=== PATIENT | female | born 1970 | race Caucasian/White ===

== ENCOUNTER → 2017-10-19 | Outpatient (CLI) | payer BC ==
--- NOTE | 2017-10-19 15:12 | US ---
EXAMINATION TYPE: US kidneys/renal and bladder DATE OF EXAM: 10/19/2017 COMPARISON: NONE CLINICAL HISTORY: N13.2 History of R Hydronephrosis. History of stones EXAM MEASUREMENTS: Right Kidney: 11.5 x 3.9 x 5.3 cm Left Kidney: 12.3 x 5.3 x 4.5 cm Right Kidney: No hydronephrosis. Some echogenic foci visualized, possible stones, largest measuring 0 .4 cm . Left Kidney: No hydronephrosis or masses seen Bladder: wnl Bilateral Jets seen: Yes There is no evidence for hydronephrosis at this point in time. No masses are identified. The urinar y bladder is anechoic. Bilateral ureteral jets are seen. IMPRESSION: Nonobstructing nephrolithiasis right kidney.
== END | disposition home or self-care (01) ==
LOC: RADUSWWP 14:44 → EDBD 15:00
PROVIDERS: ATTEND Urology
DX: N20.0 Calculus of kidney (principal)
CPT/HCPCS: 76770

== ENCOUNTER 2022-02-15 10:43 | Inpatient (IN) | payer BC ==
[2022-02-15] MEDS ORDERED: SODIUM CHLORIDE 0.9% 1,000 ML IV STA (11:08)
[2022-02-15] MEDS ORDERED: ASPIRIN 81 MG PO STA (11:08)
[2022-02-15] MEDS: NITROGLYCERIN SL TABS 0.4 MG TAB SUBLINGUAL STA ×2 (11:27→11:58)
[2022-02-15 11:40] LABS: ALT 18 U/L (4-34); AST 25 U/L (14-36); African American GFR (CKD) >90 (>60 ml/min/1.73 sqM); Albumin 4.5 g/dL (3.5-5.0); Alkaline Phosphatase 96 U/L (38-126); Anion Gap 9 mmol/L; Blood Urea Nitrogen 11 mg/dL (7-17); Calcium 9.6 mg/dL (8.4-10.2); Carbon Dioxide 24 mmol/L (22-30); Chloride 108 mmol/L (98-107); Glucose 104 mg/dL (74-99); Non-African American GFR(CKD) >90 (>60 ml/min/1.73 sqM); Potassium 4.2 mmol/L (3.5-5.1); Sodium 141 mmol/L (137-145); Total Bilirubin 0.6 mg/dL (0.2-1.3); Total Protein 7.3 g/dL (6.3-8.2)
[2022-02-15 11:46] LABS: Basophils % (A) 0 %; Eosinophils # (A) 0.3 k/uL (0-0.7); Eosinophils % (A) 2 %; HCT 44.4 % (34.0-46.0); Lymphocytes # (A) 2.6 k/uL (1.0-4.8); Lymphocytes % (A) 22 %; MCH 30.1 pg (25.0-35.0); MCHC 33.8 g/dL (31.0-37.0); MCV 89.1 fL (80.0-100.0); Mean Platelet Volume 7.7; Monocytes # (A) 0.5 k/uL (0-1.0); Monocytes % (A) 4 %; Neutrophils # (A) 8.5 k/uL (1.3-7.7); Neutrophils % (A) 71 %; Platelet Count 477 k/uL (150-450); RBC 4.98 m/uL (3.80-5.40); RDW 13.3 % (11.5-15.5); WBC 11.9 k/uL (3.8-10.6)
[2022-02-15 11:49] LABS: INR 0.9 (<1.2); Partial Thromboplastin Time 23.6 sec (22.0-30.0); Prothrombin Time 10.1 sec (9.0-12.0)
--- NOTE | 2022-02-15 11:54 | XR ---
EXAMINATION TYPE: XR chest 2V DATE OF EXAM: 02/15/2022 COMPARISON: NONE HISTORY: Chest pain. TECHNIQUE: Frontal and lateral views of the chest are obtained. FINDINGS: Overlying EKG leads are present. There is no focal air space opacity, pleural effusion, or pneumothorax seen. The cardiac silhouette size is within normal limits. The osseous structures are intact. IMPRESSION: No acute process.
--- NOTE | 2022-02-15 12:07 | ED ---
Chest Pain HPI - General Chief Complaint: Chest Pain Stated Complaint: Chest pain Time Seen by Provider: 02/15/22 11:00 Source: patient Mode of arrival: ambulatory Limitations: no limitations - History of Present Illness Initial Comments: Patient is a 51-year-old female presenting with chief complaint of chest pain. Patient admits to intermittent chest pain for the past several weeks, however over the last 3-4 days it has become more frequent and intense. She states that "it feels like a small child is sitting on my chest". The pain is not reprodu cible. She does not notice it more with exertion. She states that occasionally she feels pain in the left arm. She also feel pain in her throat and across her back. She admits to intense episodes of diaphoresis. She denies shortness of breath, palpitations, weakness, nausea, vomiting, abdominal pain, headache, vision changes, diarrhea. - Related Data Home Medications Medication Instructions Recorded Confirmed No Known Home Medications 02/15/22 02/15/22 Allergies Allergy/AdvReac Type Severity Reaction Status Date / Time No Known Allergies Allergy Verified 02/15/22 13:05 Review of Systems ROS Statement: Those systems with pertinent positive or pertinent negative responses have been documented in the HPI. ROS Other: All systems not noted in ROS Statement are negative. EKG Findings - EKG Comments: EKG Findings:: Sinus rhythm with rate of 75. SC interval 129. QRS duration 81. There is some T-wave inversion in lead 3. EKG was promptly shown to and interpreted by my attending Dr. Saenz as well Past Medical History Past Medical History: Hyperlipidemia, Hypertension History of Any Multi-Drug Resistant Organisms: None Reported Past Surgical History: Tonsillectomy Additional Past Surgical History / Comment(s): lithotripsy Past Psychological History: No Psychological Hx Reported Smoking Status: Current every day smoker Past Alcohol Use History: Rare Past Drug Use History: Marijuana General Exam Limitations: no limitations General appearance: alert, in no apparent distress Head exam: Present: atraumatic, normocephalic, normal inspection Eye exam: Present: normal appearance, EOMI. Absent: scleral icterus Neck exam: Present: normal inspection Respiratory exam: Present: normal lung sounds bilaterally. Absent: respiratory distress, wheezes, rales, rhonchi, stridor Cardiovascular Exam: Present: regular rate, normal rhythm, normal heart sounds. Absent: systolic murmur, diastolic murmur, rubs, gallop, clicks GI/Abdominal exam: Present: soft. Absent: distended, tenderness, guarding, rebound, rigid Neurological exam: Present: alert, oriented X3, CN II-XII intact Psychiatric exam: Present: normal affect, normal mood Skin exam: Present: warm, dry, intact, normal color. Absent: rash Course Vital Signs 02/15/22 02/15/22 10:46 12:55 Temperature 98 F Pulse Rate 80 62 Respiratory 18 18 Rate Blood Pressure 173/87 157/81 O2 Sat by Pulse 100 Oximetry Chest Pain [facility] Patient is a 51-year-old female presenting with chief complaint of chest pain. Patient states she has had recurrent bouts of chest pain for several weeks, this recent episode has been going on for the last 3 days. It is not exertional, does not reproducible, she describes it as "I feel like there is a small child sitting on my chest". She has intermittent left arm and neck pain. On examination heart and lungs are clear to auscultation. Pain is not reproducible. Initial EKG obtained shows T-wave inversion in lead 3. Troponin is elevated at 0.792. Patient was admitted with ACS protocol, this included low-dose heparin, sublingual nitro, nitro paste, 80 mg Lipitor, metoprolol, telemetry monitoring. I spoke with the hospitalist team and Dr. Ivey. I pl aced a nursing communication order that any change in her pain should be communicated to Dr. Ivey, as instructed by him. I explained the findings to the patient. She was agreeable to admission. I discussed this case with my attending Dr. Saenz. Critical Care Time Critical Care Time: Yes (30) Disposition Clinical Impression: Acute non-ST elevation myocardial infarction (NSTEMI) Disposition: ADMITTED IP TO THIS [facility] Condition: Stable Time of Disposition: 13:05 Decision to Admit Reason: Admit from EC Decision Date: 02/15/22 Decision Time: 13:05
[2022-02-15] MEDS ORDERED: HEPARIN SODIUM 1,000 UN/ML (10ML VL) IV ONE (12:19)
[2022-02-15] MEDS ORDERED: HEPARIN SODIUM 1,000 UN/ML (10ML VL) IV PRN (12:19)
[2022-02-15] MEDS ORDERED: NITROGLYCERIN OINT 1 INCH/GM PACKET TOPICAL STA (12:27)
[2022-02-15] MEDS ORDERED: HEPARIN SOD,PORK IN 0.45% NACL 25,000 UNIT in 0.45% NACL 1 250ML.BAG IV SCH (12:30)
[2022-02-15] MEDS ORDERED: NITROGLYCERIN SL TABS 0.4 MG TAB SUBLINGUAL PRN (12:37)
[2022-02-15] MEDS ORDERED: METOPROLOL TARTRATE 50 MG TAB PO STA (12:59)
[2022-02-15] MEDS: ATORVASTATIN 80 MG TAB PO SCH (13:03)
--- NOTE | 2022-02-15 14:22 | P.HPIM ---
History of Present Illness H&P Date: 02/15/22 Chief Complaint: Chest pain Patient is a 50-year-old female with a past medical history of hypertension and hyperlipidemia who comes to the ED for chest pain evaluation. Patient states that she has been having ongoing persistent pressure-like chest pain for the pa st 3 days. She states that it is not really associated with exertion. She stated that she was given nitro and also has nitro patch on her chest which is not helping with her chest pain. She does state that the chest pain radiates to her left arm and at times she also has tightness in her neck. Patient states that the chest pain is associated with diaphoresis. She states that her brother and father both in their 40s and 50s respectively. In the ED patient was found to have a troponin of 0.7. EKG showed T-wave inversion in Lead III. Patient started on heparin drip. She was given aspirin. Cardiology notified. Of note patient states that she has been noncompliant with her medication. She states that in the last few she maybe only took it one time. She also does not know the name of her meds. Review of Systems 10 ROS reviewed and are negative except as noted in HPI Past Medical History Past Medical History: Hyperlipidemia, Hypertension History of Any Multi-Drug Resistant Organisms: None Reported Past Surgical History: Tonsillectomy Additional Past Surgical History / Comment(s): lithotripsy Past Psychological History: No Psychological Hx Reported Smoking Status: Current every day smoker Past Alcohol Use History: Rare Past Drug Use History: Marijuana Medications and Allergies Home Medications Medication Instructions Recorded Confirmed Type No Known Home Medications 02/15/22 02/15/22 History Allergies Allergy/AdvReac Type Severity Reaction Status Date / Time No Known Allergies Allergy Verified 02/15/22 13:05 Physical Exam Osteopathic Statement: *. No significant issues noted on an osteopathic structural exam other than those noted in the History and Physical/Consult. Vitals: Vital Signs Temp Pulse Pulse Resp BP BP Pulse Ox 02/15/22 13:58 98.0 F 70 18 189/98 97 02/15/22 12:55 62 18 157/81 02/15/22 10:46 98 F 80 18 173/87 100 Intake and Output 02/14/22 02/15/22 02/15/22 22:59 06:59 14:59 Other: Weight 58.967 kg General: [Alert and oriented, well nourished, no acute distress]. Eye: [PERRL, EOMI, normal conjunctiva]. HENT: [Normocephalic, clear tympanic membranes, normal hearing, moist oral mucosa, no scleral icterus, no sinus tenderness]. Neck: [Supple, non-tender, no carotid bruits, no JVD, no lymphadenopathy]. Lungs: [Clear to auscultation and percussion, non-labored respiration]. Heart: [Normal rate, regular rhythm, no murmur, gallop or edema]. Abdomen: [Soft, non-tender, non-distended, normal bowel sounds, no masses]. Musculoskeletal: [Normal range of motion and strength, no tenderness or swe lling]. Skin: [Skin is warm, dry and pink, no rashes or lesions]. Neurologic: [Awake, alert, and oriented X3, CN II-XII intact]. Psychiatric: [Cooperative, appropriate mood and affect]. Results CBC & Chem 7: 02/15/22 11:21 02/15/22 11:21 Labs: Abnormal Lab Results - Last 24 Hours (Table) 02/15/22 02/15/22 02/15/22 Range/Units 11:21 11:21 11:21 WBC 11.9 H (3.8-10.6) k/uL Plt Count 477 H (150-450) k/uL Neutrophils # 8.5 H (1.3-7.7) k/uL Chloride 108 H (98-107) mmol/L Glucose 104 H (74-99) mg/dL Troponin I 0.792 H* (0.000-0.034) ng/mL Thrombosis Risk Factor Assmnt - Choose All That Apply Each Factor Represents 1 point: Age 41-60 years Thrombosis Risk Factor Assessment Total Risk Factor Score: 1 Thrombosis Risk Factor Assessment Level: Low Risk Assessment and Plan Assessment: #Non-ST elevation IN -Resume heparin drip and nitro patch -Resume aspirin and statin -Resume beta tanya -Trend troponins 2 more times -Check echocardiogram -Cardiology consult #Hypertension -Uncontrolled likely due to chest pain and also noncompliance with her home medications -Patient started on metoprolol #Hyperlipidemia -Patient started CODE STATUS:full code DVT prophylaxis: heparin ggt Discussed with: Patient, ER, rn Anticipated length of stay > than [address]: home A total of 50 minutes was spent on the care of this complex patient more than 50% of the time was spent in counseling and care coordination.
[2022-02-15] MEDS ORDERED: HYDROmorphone 0.5 MG/0.5 ML SYRINGE IVP STA (15:46)
[2022-02-15] MEDS ORDERED: amLODIPine 5 MG TAB PO STA (15:46)
[2022-02-15] MEDS ORDERED: SODIUM CHLORIDE 0.9% 1,000 ML in EMPTY BAG 1 BAG IV ONE ×2 (16:35→18:37)
[2022-02-15] MEDS ORDERED: ALPRAZolam 0.25 MG TAB PO PRN (16:35)
[2022-02-15] MEDS ORDERED: ALPRAZolam 0.5 MG TAB PO PRN (16:35)
[2022-02-15] MEDS ORDERED: ATORVASTATIN 80 MG TAB PO STA (16:35)
[2022-02-15] MEDS ORDERED: IV FLUID CONTINUATION 400 ML IV ONE (17:10)
[2022-02-15] MEDS ORDERED: VERAPAMIL 2.5 MG/ML 2 ML AMP ONE (17:18)
[2022-02-15] MEDS: MIDAZOLAM 2 MG/2 ML VIAL IV ONE ×2 (17:23→17:58)
[2022-02-15] MEDS ORDERED: LIDOCAINE 1% INJ 10MG/ML (5 ML VIAL-PF) SQ ONE (17:25)
[2022-02-15] MEDS: VERAPAMIL SYRINGE (5 MG/10 ML) IV ONE ×2 (17:34→18:28)
[2022-02-15] MEDS ORDERED: IOPAMIDOL-370 50ML BTL INJ ONE (17:50)
[2022-02-15] MEDS ORDERED: NITROGLYCERIN OINT 1 INCH/GM PACKET TOPICAL SCH (18:00)
[2022-02-15] MEDS ORDERED: fentaNYL (PF) 50 MCG/ML 2 ML AMP ONE (18:02)
[2022-02-15] MEDS ORDERED: fentaNYL (PF) 50 MCG/ML 2 ML AMP IV ONE (18:04)
[2022-02-15] MEDS ORDERED: ADENOSINE 90 MG in SODIUM CHLORIDE 0.9% 60 ML IVP ONE (18:09)
[2022-02-15] MEDS ORDERED: TICAGRELOR 90 MG TAB ONE (18:16)
[2022-02-15] MEDS ORDERED: TICAGRELOR 90 MG TAB PO ONE (18:17)
[2022-02-15] MEDS ORDERED: IOPAMIDOL-370 100ML BTL INJ ONE ×2 (18:21→18:34)
[2022-02-15] MEDS ORDERED: NITROGLYCERIN 1000MCG/10ML SYRINGE INTRACORON ONE (18:22)
[2022-02-15] MEDS: SODIUM CHLORIDE 0.9% 1,000 ML IV SCH (19:01)
--- NOTE | 2022-02-15 19:22 | CONS ---
CONSULTATION This is a 51-year-old lady with a history of hypertension and smoking and a strong family history of premature CAD. She sees Dr. Nguyen as an outpatient, does not follow medical advice, and has not been taking antihypertensives as advised. For about a month she was just feeling symptoms of lack of energy, chest tightness with activity, but she kind of ignored it. But for the last 3 days she had a persistent discomfort in the chest with activity and finally decided to come into the emergency room today. For 3 to 4 days she had exertional chest discomfort, always a sensation of heaviness. After arrival she was relatively comfortable. Initial troponin was mildly elevated. EKG did not reveal any significant changes. She was placed on a heparin drip, nitro paste and beta tanya. Her blood pressure seemed to fluctuate quite a bit. With elevated blood pressure she had chest tightness and pressure. Because of recurrent episodes of chest pain requiring nitroglycerin, I advised coronary angiography and called the director of cardiac cath lab team in. I spoke to the patient's and mother regarding the rationale for cardiac catheterization, the risks, benefits and options. They understood all details and wished to proceed with the procedure. PAST MEDICAL HISTORY: 1. Hypertension. 2. Hyperlipidemia. 3. History of tonsillectomy. 4. Strong family history of premature CAD. 5. History of smoking and also marijuana use. Rarely drinks alcohol. PHYSICAL EXAMINATION: On examination, blood pressure is 150/80, pulse rate is about 62 per minute, regular. HEENT unremarkable. Fundus was not examined by me. Neck is supple. No JVD. I do not hear a carotid bruit. There is no thyromegaly. Heart exam reveals S1, S2 heard normally. There is no rub, murmur or gallop. Lungs are clear. Abdomen is soft, nontender. Lower extremities reveal normal pulses. No edema. Central nervous system is normal. EKG revealed sinus mechanism, no acute changes. Sinus bradycardia. LABORATORY DATA: Troponin 0.7 and repeat troponin of 0.9. Her renal function, hemoglobin and platelet counts are all within normal limits. IMPRESSION: 1. Acute [id number] myocardial infarction with recurrent chest pain. 2. History of hypertension, not taking medications. 3. Hyperlipidemia. 4. History of smoking. 5. Strong family history of premature coronary artery disease. RECOMMENDATIONS: I recommended coronary angiography and she was brought into the director of cardiac cath lab for the procedure. MMODL / IJN: [id number] /
--- NOTE | 2022-02-15 19:36 | CC ---
CARDIAC CATHETERIZATION REPORT DATE OF SERVICE: 02/15/2022. PROCEDURE: 1. Left heart catheterization and coronary angiography. 2. Left ventriculography. 3. Fractional flow reserve assessment of right coronary artery. 4. Percutaneous transluminal coronary angioplasty and stenting of proximal right coronary artery with a drug-eluting stent next. PERFORMED BY: Dr. Zandra Ivey. Moderate conscious sedation time was 67 minutes. Patient was administered Versed and Benadryl. Oxygen saturation, hemodynamics and EKG were monitored closely. CLINICAL INFORMATION: Mrs. Delmy Holland is a 51-year-old lady with hypertension, smoking and family history of CAD who does not follow medical advice and has not taken antihypertensives, although she was prescribed them by her PCP, Dr. Nguyen. She comes into the hospital with 3 days' worth of chest discomfort that finally became more persistent and continuous. EKG was unremarkable. She had mild troponin elevation, but because of recurrent pain I advised cardiac cath after due discussion regarding risks, benefits and options. PROCEDURE NOTE: Under local anesthesia and strict aseptic precautions, a 6-Mongolian introducer was placed in the right radial artery. Using a JL3.5 and JR4 catheters I performed coronary angiography, and the same right catheter was used to check LV pressures. I then performed an LV-gram with a pigtail catheter. I noted that the RCA was super-dominant and had a 60% to 70% proximal eccentric lesion with haziness. I performed an FFR of this vessel using an Omni straight wire, and after normalizing the pressures I performed an FFR with adenosine infusion. FFR came to be 0.[address]-segment changes and chest discomfort. This was quite significant hemodynamically. I proceeded to perform PCI. The same wire was used for the PCI. I used a 3.25 caliber 20 mm Trek balloon. With this I pre-dilated the lesion. I then deployed a 4.0 caliber 23 mm long Xience stent at 13 atmospheres. Patient had chest pain and inferior ST-segment elevation. Excellent angiographic result was achieved. She received intravenous heparin and ACT was 247. Additional 1000 units of heparin was given. She also received 180 mg of Brilinta. Excellent angiographic result without complication was achieved. The sheath was taken out and TR band applied as per protocol and she was sent to the room in a stable condition. CARDIAC CATHETERIZATION FINDINGS: The left ventricular end-diastolic pressure was 10 mmHg without any gradient across the aortic valve. CORONARY ANGIOGRAPHY FINDINGS: RIGHT CORONARY ARTERY: Large dominant vessel has a proximal lesion of about 60% to 70%, hazy, and flow is fairly well preserved. This is a suspicious lesion and borderline for being significant. I performed FFR of this which was positive. The RCA is a super- dominant vessel with no significant disease in the distal PDA and PLV branches. LEFT MAIN CORONARY ARTERY: Short, patent vessel free of significant disease. It bifurcates into LAD and circumflex. LEFT ANTERIOR DESCENDING CORONARY ARTERY: Good-caliber vessel extends along the anterior wall, gives off septal branches and a large diagonal branch in the mid portion, supplies a sizable amount of myocardium. Distal one third is somewhat small in caliber. No significant disease. LEFT POSTERIOR CIRCUMFLEX CORONARY ARTERY: Nondominant vessel gives off a single obtuse marginal. Good caliber. Runs laterally. Tortuous. No significant disease. LEFT VENTRICULOGRAM: This was performed in 30-degree MACK[place]ZIE projection and revealed left ventricle is of normal size with good systolic function, ejection fraction of 60%, with minimal mitral regurgitation and no wall motion abnormality. FINAL IMPRESSION: This patient has a 60% to 70% proximal RCA lesion in a very super-dominant vessel. No significant disease in the left main, LAD or circumflex. Ejection fraction is 60% without wall motion abnormality. Normal filling pressures. No gradient. RECOMMENDATIONS: I advised PCI of RCA and proceeded to perform this in the same setting with an excellent angiographic result. The patient was sent to the room in a stable condition. The results were discussed with the patient and family. She was advised to quit smoking. She will be on dual antiplatelet therapy for a total duration of a minimum one year. She will be on statins, beta blockers and antihypertensive agents. MMODL / IJN: [id number] /
[2022-02-15] MEDS: MELATONIN 5 MG TABLET PO SCH (19:56)
[2022-02-15] MEDS: METOPROLOL TARTRATE 25 MG TAB PO SCH (19:58)
[2022-02-15] MEDS ORDERED: METOPROLOL TARTRATE 50 MG TAB PO SCH (21:00)
[2022-02-15 23:28] LABS: Amorphous Sediment,Urine Many /hpf; Appearance,Urine Cloudy (Clear); Bilirubin,Urine Negative (Negative); Blood,Urine Negative (Negative); Color,Urine Yellow; Glucose,Urine (UA) Negative (Negative); Ketones,Urine Negative (Negative); Leukocyte Esterase,Urine Negative (Negative); Mucus,Urine Rare /hpf; Nitrite,Urine Negative (Negative); Protein,Urine Negative (Negative); Specific Gravity,Urine >1.050 (1.001-1.035); Squamous Epithelial Cell,Urine 1 /hpf (0-4); Urobilinogen,Urine <2.0 mg/dL (<2.0); WBC,Urine 8 /hpf (0-5)
[2022-02-16 08:09] LABS: Prothrombin Time 10.5 sec (9.0-12.0)
[2022-02-16 08:14] LABS: African American GFR (CKD) >90 (>60 ml/min/1.73 sqM); Anion Gap 8 mmol/L; Basophils # (A) 0.1 k/uL (0-0.2); Basophils % (A) 1 %; Blood Urea Nitrogen 8 mg/dL (7-17); Carbon Dioxide 20 mmol/L (22-30); Chloride 111 mmol/L (98-107); Eosinophils # (A) 0.2 k/uL (0-0.7); Eosinophils % (A) 2 %; Glucose 89 mg/dL (74-99); HCT 41.3 % (34.0-46.0); HGB 13.9 gm/dL (11.4-16.0); Lymphocytes # (A) 2.7 k/uL (1.0-4.8); Lymphocytes % (A) 25 %; MCH 30.7 pg (25.0-35.0); MCHC 33.6 g/dL (31.0-37.0); MCV 91.4 fL (80.0-100.0); Mean Platelet Volume 7.4; Monocytes # (A) 0.7 k/uL (0-1.0); Monocytes % (A) 6 %; Neutrophils # (A) 6.9 k/uL (1.3-7.7); Neutrophils % (A) 64 %; Non-African American GFR(CKD) >90 (>60 ml/min/1.73 sqM); Platelet Count 402 k/uL (150-450); Potassium 4.4 mmol/L (3.5-5.1); RBC 4.51 m/uL (3.80-5.40); RDW 13.3 % (11.5-15.5); Sodium 139 mmol/L (137-145); WBC 10.7 k/uL (3.8-10.6)
[2022-02-16] MEDS: amLODIPine 5 MG TAB PO SCH (09:00)
[2022-02-16] MEDS: ATORVASTATIN 80 MG TAB PO SCH (09:00)
[2022-02-16] MEDS: ASPIRIN 81 MG PO SCH (09:00)
[2022-02-16] MEDS: METOPROLOL TARTRATE 25 MG TAB PO SCH ×2 (09:00→19:40)
[2022-02-16] MEDS: TICAGRELOR 90 MG TAB PO SCH ×2 (09:00→19:40)
[2022-02-16] MEDS ORDERED: ASPIRIN 325 MG TAB PO SCH (09:00)
[2022-02-16] MEDS: LOSARTAN 50 MG TAB PO SCH (09:00)
--- NOTE | 2022-02-16 12:14 | P.PN ---
Subjective Progress Note Date: 02/16/22 HISTORY OF PRESENT ILLNESS: This is a 51-year-old female with a history of hypertension and smoking who presented to the emergency room with chest discomfort. Patient underwent cardi ac catheterization yesterday with PCI to the RCA by Dr. Ivey. Patient examined this morning at the bedside. Patient denies shortness of breath. She denies chest pain or pressure. She reports that her chest feels a little bit sore this morning. Vital signs are stable. Right radial cath site with pulse present. PHYSICAL EXAM: VITAL SIGNS: Reviewed. GENERAL: Well-developed in no acute distress. NECK: Supple. No JVD or thyromegaly LUNGS: Respirations even and unlabored. Lungs essentially clear to auscultation bilaterally. HEART: Regular rate and rhythm. S1 and S2 heard. EXTREMITIES: Normal range of motion. No clubbing or cyanosis. Peripheral pulses intact. No lower extremity edema ASSESSMENT: Non-STEMI, s/p cardiac catheterization with PCI to the RCA Hypertension, not taking medications on an outpatient basis Hyperlipidemia Nicotine dependence Family history of premature coronary artery disease PLAN: Continue current cardiac medications 2-D echo ordered. Await results Continue to monitor patient for another 24 hours. Anticipate discharge home tomorrow if patient remains stable Nurse practitioner note has been reviewed by physician. Signing provider agrees with the documented findings, assessment, and plan of care. Objective - Vital Signs Vital signs: Vital Signs Temp 97.8 F 02/16/22 12:03 Pulse 64 02/16/22 12:03 Resp 18 02/16/22 12:03 BP 129/80 02/16/22 12:03 Pulse Ox 97 02/16/22 12:03 FiO2 Intake & Output 02/15/22 02/16/22 02/16/22 18:59 06:59 18:59 Intake Total 288.06 660 Output Total 300 Balance 288.06 -300 660 Weight 58.967 kg Intake: IV 288.06 Oral 660 Output: Urine 300 Other: Voiding Method Toilet Toilet Toilet # Voids 0 2 # Bowel Movements 0 - Labs CBC & Chem 7: 02/16/22 07:14 02/16/22 07:14 Labs: Abnormal Lab Results - Last 24 Hours (Table) 02/15/22 02/15/22 02/15/22 Range/Units 14:19 20:38 23:05 WBC (3.8-10.6) k/uL APTT 82.0 H (22.0-30.0) sec Chloride (98-107) mmol/L Carbon Dioxide (22-30) mmol/L Troponin I 0.924 H* (0.000-0.034) ng/mL Urine Appearance Cloudy H (Clear) Ur Specific [place] >1.050 H (1.001-1.035) Urine WBC 8 H (0-5) /hpf Amorphous Sediment Many H (None) /hpf Urine Mucus Rare H (None) /hpf 02/16/22 02/16/22 Range/Units 07:14 07:14 WBC 10.7 H (3.8-10.6) k/uL APTT (22.0-30.0) sec Chloride 111 H (98-107) mmol/L Carbon Dioxide 20 L (22-30) mmol/L Troponin I (0.000-0.034) ng/mL Urine Appearance (Clear) Ur Specific [place] (1.001-1.035) Urine WBC (0-5) /hpf Amorphous Sediment (None) /hpf Urine Mucus (None) /hpf
--- NOTE | 2022-02-16 12:35 | P.PN ---
Subjective Progress Note Date: 02/16/22 Patient states that she does have some discomfort in her chest however the pressure-like pain has gone away and she no longer has the achy sensation in the left arm. Objective - Vital Signs Vital signs: Vital Signs Temp 97.8 F 02/16/22 12:03 Pulse 64 02/16/22 12:03 Resp 18 02/16/22 12:03 BP 129/80 02/16/22 12:03 Pulse Ox 97 02/16/22 12:03 FiO2 Intake & Output 02/15/22 02/16/22 02/16/22 18:59 06:59 18:59 Intake Total 288.06 660 Output Total 300 Balance 288.06 -300 660 Weight 58.967 kg Intake: IV 288.06 Oral 660 Output: Urine 300 Other: Voiding Method Toilet Toilet Toilet # Voids 0 2 # Bowel Movements 0 - Exam General examination - Alert and Oriented 3 in NAD Heart - + S1S2 no murmurs Lungs - Clear to auscultation Abdomen soft NT ND +ve BS Extremities - No edema 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 spontaneously Psych - Calm and cooperative - Labs CBC & Chem 7: 02/16/22 07:14 02/16/22 07:14 Labs: Abnormal Lab Results - Last 24 Hours (Table) 02/15/22 02/15/22 02/15/22 Range/Units 14:19 20:38 23:05 WBC (3.8-10.6) k/uL APTT 82.0 H (22.0-30.0) sec Chloride (98-107) mmol/L Carbon Dioxide (22-30) mmol/L Troponin I 0.924 H* (0.000-0.034) ng/mL Urine Appearance Cloudy H (Clear) Ur Specific [place] >1.050 H (1.001-1.035) Urine WBC 8 H (0-5) /hpf Amorphous Sediment Many H (None) /hpf Urine Mucus Rare H (None) /hpf 02/16/22 02/16/22 Range/Units 07:14 07:14 WBC 10.7 H (3.8-10.6) k/uL APTT (22.0-30.0) sec Chloride 111 H (98-107) mmol/L Carbon Dioxide 20 L (22-30) mmol/L Troponin I (0.000-0.034) ng/mL Urine Appearance (Clear) Ur Specific [place] (1.001-1.035) Urine WBC (0-5) /hpf Amorphous Sediment (None) /hpf Urine Mucus (None) /hpf Assessment and Plan Assessment: #Non-ST elevation [place] -Status post heart catheterization with stent to RCA -Patient started on brilinta aspirin and statin -Resume aspirin and statin -Resume beta tanya and losartan -Check echocardiogram -Per cardiology monitor the patient for another 24 hours and if stable can be discharged tomorrow. #Hypertension -Patient started on metoprolol, losartan and amlodipine by cardiology -Monitor blood pressure closely -This morning blood pressures controlled #Hyperlipidemia -Patient started I discussed with case worker who will look into coverage for Brilinta CODE STATUS:full code DVT prophylaxis: Encourage early ambulation Anticipated length of stay: [address]: home
[2022-02-16] MEDS: SODIUM CHLORIDE 0.9% 1,000 ML IV SCH (13:06)
--- NOTE | 2022-02-16 18:36 | CA ---
Transthoracic Echo Report Name: Delmy Holland Age: 51 Gender: F : 1970 Exam Date: 02/16/2022 09:21 Exam Location: [facility] Ht (in): 66 Wt (lb): 130 Ordering Physician: Behzad Krueger MD Attending/Referring Phys: Senior Care Manager Leona Ferrer RDCS Procedure CPT: Indications: Chest Pain Cardiac Hx: Technical Quality: Good Contrast 1: Total Dose (mL): Contrast 2: Total Dose (mL): MEASUREMENTS (Male / Female) Normal Values 2D ECHO LV Diastolic Diameter PLAX 3.4 cm 4.2 - 5.9 / 3.9 - 5.3 cm LV Systolic Diameter PLAX 2.4 cm IVS Diastolic Thickness 1.0 cm 0.6 - 1.0 / 0.6 - 0.9 cm LVPW Diastolic Thickness 0.9 cm 0.6 - 1.0 / 0.6 - 0.9 cm LV Relative Wall Thickness 0.6 RV Internal Dim ED PLAX 2.9 cm LA Systolic Diameter LX 2.4 cm 3.0 - 4.0 / 2.7 - 3.8 cm LA Volume 33.0 cm??? 18 - 58 / 22 - 52 cm??? M-MODE Aortic Root Diameter MM 2.5 cm MV E Point Septal Separation 0.3 cm AV Cusp Separation MM 1.7 cm DOPPLER AV Peak Velocity 156.0 cm/s AV Peak Gradient 9.7 mmHg MV Area PHT 3.8 cm??? Mitral E Point Velocity 106.3 cm/s Mitral A Point Velocity 75.2 cm/s Mitral E to A Ratio 1.4 MV Deceleration Time 198.6 ms MV E' Velocity 8.9 cm/s Mitral E to MV E' Ratio 12.0 TR Peak Velocity 219.6 cm/s TR Peak Gradient 19.3 mmHg Right Ventricular Systolic Press 23.8 mmHg FINDINGS Left Ventricle Left ventricular ejection fraction is estimated at 60-65 %. Left ventricular cavity size normal. Right Ventricle Normal right ventricular size and function. Right ventricular systolic pressure within normal limits. Right Atrium Normal right atrial size. Left Atrium Normal left atrial size. No evidence for an atrial septal defect. Mitral Valve Structurally normal mitral valve. No mitral stenosis, regurgitation or prolapse. Structurally normal mitral valve. Aortic Valve Trileaflet aortic valve. No aortic valve stenosis or regurgitation. Tricuspid Valve Mild tricuspid regurgitation. Pulmonic Valve Pulmonic valve not well visualized. Pericardium Normal pericardium. Aorta Normal size aortic root and proximal ascending aorta. CONCLUSIONS Preserved LV systolic function Preserved RV systolic function No significant valvular abnormalities Previewed by: Dr. John Pereira MD (Electronically Signed) Final Date: 16 Feb 2022 18:35
[2022-02-16 22:47] LABS: Chol/HDL Ratio 6.67 Ratio; LDL Cholesterol,Calculated 154.2 mg/dL (0.0-131.0)
[2022-02-16] MEDS: MELATONIN 5 MG TABLET PO SCH (23:10)
[2022-02-16] MEDS: ACETAMINOPHEN TAB 325 MG TAB PO PRN (23:29)
[2022-02-17] MEDS: METOPROLOL TARTRATE 25 MG TAB PO SCH (07:49)
[2022-02-17] MEDS: ACETAMINOPHEN TAB 325 MG TAB PO PRN (07:49)
[2022-02-17] MEDS: ASPIRIN 81 MG PO SCH (07:49)
[2022-02-17] MEDS: amLODIPine 5 MG TAB PO SCH (07:50)
[2022-02-17] MEDS: ATORVASTATIN 80 MG TAB PO SCH (07:50)
[2022-02-17] MEDS: TICAGRELOR 90 MG TAB PO SCH (07:50)
[2022-02-17] MEDS: LOSARTAN 50 MG TAB PO SCH (07:50)
[2022-02-17 09:22] LABS: Mean Platelet Volume 7.4; Platelet Count 405 k/uL (150-450)
[2022-02-17 09:58] VITALS: TEMP 97.9
--- NOTE | 2022-02-17 10:58 | P.DS ---
Providers Date of admission: 02/15/22 12:17 Expected date of discharge: 02/17/22 Attending physician: Behzad Krueger MD Consults: 02/15/22 12:37 Consult Physician Stat Consulting Provider: [facility] Consult Reason/Comments: NSTEMI Do you want consulting provider notified?: Yes Primary care physician: [facility] Hospital Course: Discharge Diagnosis: NSTEMI, patient underwent PCI to RCA on 02/15/22 Hypertension Hyperlipidemia Nicotine dependence Hospital Course: Patient is a 51-year-old female with a past medical history of hypertension, hyperlipidemia, and nicotine dependence. She presented to the emergency department 02/15/22 with a chief complaint of chest pain. She underwent full evaluation in the emergency department. EKG was completed showing normal sinus rhythm at 65 bpm with no noted T wave or ST abnormality showing no signs of acute ischemia. Chest x-ray negative for acute cardiopulmonary process. CBC revealed mild leukocytosis with WBC count of 11.9 and mild thrombocytosis with platelet count of 477. D-dimer was negative at 0.21. CMP unremarkable. proBNP 293. Troponin was then found to be elevated at 0.924, patient was admitted under our services with consultation to cardiology. She was taken to the Cardiac Nurse Specialist for treatment of NSTEMI and had a stent placed to RCA on 02/15/22. Patient was started on antihypertensive medications secondary to hypertensive urgency with blood pressure 189/98. Lipid profile completed revealing elevated cholesterol of 216, elevated LDL of 154 and low HDL of 32.40. Echocardiogram was completed showing normal EF of 60-65% with no significant valvular abnormalities. Patient medically stable at this time and blood pressures have stabilized with blood pressure currently 110/76, heart rate 60, respiratory rate 18, and SpO2 of 90% on room air. Cardiology recommending outpatient follow-up in the office in one week. Patient discharged home with purulent, aspirin, losartan, metoprolol, amlodipine, and atorvastatin. Patient recommended to stop smoking and to follow up outpatient with PCP in 1-2 days and cardiology in 1 week. Physical assessment: Patient seen and examined at bedside. Vital signs reviewed and stable. General: Nontoxic, no distress and appears stated age. Derm: Skin warm and dry, normal coloration for ethnicity. Head: Atraumatic, normocephalic and symmetric. Eyes: EOMs intact, no lid lag, and anicteric sclera Mouth: no lip lesions, mucus membranes moist Cardiovascular: regular rate and rhythm with normal S1S2, no murmur, positive posterior tibial pulses bilaterally, and cap refill < 2 seconds. Lungs: Respirations even, regular, and unlabored on room air. Lungs CTA bilaterally, no rhonchi, no rales, no wheezing, and no accessory muscle usage. Abdominal: soft, nontender to palpation, no guarding, no appreciable organomegaly Ext: ROM intact. No gross muscle atrophy, no edema, no contractures. Cardiac cath access site right wrist with minimal bruising, no hematoma or drainage noted. Neuro: Speech clear, face symmetrical and CN II-XII grossly intact with no noted focal neuro deficits Psych: Alert and oriented to person, place, time, and situation. Appropriate and pleasant affect. A total of 33 minutes of time were spent preparing this complex discharge summary. Pt was discharged o 02/17/22 at 10:57 AM. Amilcar Yang NP rendered care for this patient independently, reviewed the findings and plan as documented in the note above. I did not physically speak with or examine the patient on this date. Patient Condition at Discharge: Stable Plan - Discharge Summary Discharge Rx Participant: No New Discharge Prescriptions: New Ticagrelor [Brilinta] 90 mg PO BID #180 tab Aspirin 81 mg PO DAILY 30 Days #30 tab Losartan [Cozaar] 50 mg PO DAILY 30 Days #30 tab Metoprolol Tartrate [Lopressor] 25 mg PO BID 30 Days #60 tab amLODIPine [Norvasc] 5 mg PO DAILY 30 Days #30 tab Atorvastatin [Lipitor] 80 mg PO DAILY 30 Days #30 tab Discharge Medication List Aspirin 81 mg PO DAILY 30 Days #30 tab 02/17/22 [Rx] Atorvastatin [Lipitor] 80 mg PO DAILY 30 Days #30 tab 02/17/22 [Rx] Losartan [Cozaar] 50 mg PO DAILY 30 Days #30 tab 02/17/22 [Rx] Metoprolol Tartrate [Lopressor] 25 mg PO BID 30 Days #60 tab 02/17/22 [Rx] Ticagrelor [Brilinta] 90 mg PO BID #180 tab 02/17/22 [Rx] amLODIPine [Norvasc] 5 mg PO DAILY 30 Days #30 tab 02/17/22 [Rx] Follow up Appointment(s)/Referral(s): Allyssa Ivey MD [STAFF PHYSICIAN] - 1 Week (Office to call with appointment.) Doreen Garsia MD [Primary Care Provider] - 1-2 days (Office to call with appointment.) Patient Instructions/Handouts: Heart Attack (DC), Heart Catheterization (DC) Activity/Diet/Wound Care/Special Instructions: Activity: As tolerated. Take breaks as needed. Diet: Heart healthy and carb consistent diet. Avoid salts, or foods with hidden salts such as canned or boxed foods and frozen dinners. Extra salt makes your heart work harder and traps the fluid in your body for longer. Special Instructions: Take all of your medications as directed and remember to keep all of your doctor's appointments and follow-up as needed. Thank you for allowing us to participate in your care, it was truly a pleasure having you for our patient!!! Discharge/Stand Alone Forms: Work/School Release / Restrict Discharge Disposition: HOME SELF-CARE
[2022-02-17 12:07] VITALS: BP 110/76; PULSE 60; RESP 18
--- NOTE | 2022-02-17 12:48 | P.PN ---
Subjective Progress Note Date: 02/17/22 HISTORY OF PRESENT ILLNESS: This is a 51-year-old female with a history of hypertension and smoking who presented to the emergency room with chest discomfort. Patient underwent cardi ac catheterization yesterday with PCI to the RCA by Dr. Ivey. Patient examined this morning at the bedside. Patient denies shortness of breath. She denies chest pain or pressure. She reports that her chest feels a little bit sore this morning. Vital signs are stable. Right radial cath site with pulse present. 02/17/2022 Patient examined this morning at the bedside. Patient denies chest pain or pressure. She denies shortness of breath. Echocardiogram performed revealing ejection fraction 60-65% with mild tricuspid regurgitation. Patient's vital signs are stable. PHYSICAL EXAM: VITAL SIGNS: Reviewed. GENERAL: Well-developed in no acute distress. NECK: Supple. No JVD or thyromegaly LUNGS: Respirations even and unlabored. Lungs essentially clear to auscultation bilaterally. HEART: Regular rate and rhythm. S1 and S2 heard. EXTREMITIES: Normal range of motion. No clubbing or cyanosis. Peripheral pulses intact. No lower extremity edema ASSESSMENT: Non-STEMI, s/p cardiac catheterization with PCI to the RCA Hypertension, not taking medications on an outpatient basis Hyperlipidemia Nicotine dependence Family history of premature coronary artery disease PLAN: Continue current cardiac medications Patient may be discharged home today from a cardiac standpoint and follow up on an outpatient basis with Dr. Ivey Nurse practitioner note has been reviewed by physician. Signing provider agrees with the documented findings, assessment, and plan of care. Objective - Vital Signs Vital signs: Vital Signs Temp 97.9 F 02/17/22 07:45 Pulse 60 02/17/22 11:03 Resp 18 02/17/22 11:03 BP 110/76 02/17/22 11:03 Pulse Ox 98 02/17/22 11:03 FiO2 Intake & Output 02/16/22 02/17/22 02/17/22 18:59 06:59 18:59 Intake Total 1320 Balance 1320 Intake: Oral 1320 Other: Voiding Method Toilet Toilet Toilet # Voids 3 1 2 # Bowel Movements 0 - Labs CBC & Chem 7: 02/17/22 08:29 02/16/22 07:14 Labs: Abnormal Lab Results - Last 24 Hours (Table) 02/16/22 Range/Units 07:14 Cholesterol 216.00 H (0.00-200.00) mg/dL LDL Cholesterol, Calc 154.2 H (0.0-131.0) mg/dL HDL Cholesterol 32.40 L (40.00-60.00) mg/dL
== END 2022-02-17 14:54 | disposition home or self-care (01) | DRG 247 ==
LOC: EC 10:43 → 3SCARD 12:17
PROVIDERS: ADMIT Internal Medicine; ATTEND Internal Medicine
PROC: 027034Z Dilation of Coronary Artery, One Artery with Drug-eluting Intraluminal Device, Percutaneous Approach (ICD-10-PCS; principal; 2022-02-15 17:00)
PROC: 4A033BC Measurement of Arterial Pressure, Coronary, Percutaneous Approach (ICD-10-PCS; principal; 2022-02-15 17:00)
PROC: 4A023N7 Measurement of Cardiac Sampling and Pressure, Left Heart, Percutaneous Approach (ICD-10-PCS; principal; 2022-02-15 17:00)
PROC: B2111ZZ Fluoroscopy of Multiple Coronary Arteries using Low Osmolar Contrast (ICD-10-PCS; principal; 2022-02-15 17:00)
PROC: B2151ZZ Fluoroscopy of Left Heart using Low Osmolar Contrast (ICD-10-PCS; principal; 2022-02-15 17:00)
DX: I21.4 Non-ST elevation (NSTEMI) myocardial infarction (principal); D72.829 Elevated white blood cell count, unspecified; D75.839 Thrombocytosis, unspecified; E78.00 Pure hypercholesterolemia, unspecified; E78.5 Hyperlipidemia, unspecified; Z71.6 Tobacco abuse counseling; F17.210 Nicotine dependence, cigarettes, uncomplicated; I10 Essential (primary) hypertension; I16.0 Hypertensive urgency; T46.5X6A Underdosing of other antihypertensive drugs, initial encounter; Z82.49 Family history of ischemic heart disease and other diseases of the circulatory system; Z91.14 Patient's other noncompliance with medication regimen; Z91.19 Patient's noncompliance with other medical treatment and regimen; Z90.89 Acquired absence of other organs; Z87.442 Personal history of urinary calculi; Z28.311 Partially vaccinated for COVID-19
CPT/HCPCS: 36415; 71046; 80048; 80053; 80061; 81001; 83735; 83880; 84484; 85025; 85049; 85379; 85610; 85730; 93005; 93306; 93458; 93571; 96361; 96365; 99291

== ENCOUNTER → 2023-04-20 | Outpatient (CLI) | payer BC ==
--- NOTE | 2023-04-22 08:46 | MR ---
EXAMINATION TYPE: MR knee RT wo con DATE OF EXAM: 04/20/2023 COMPARISON: None HISTORY: Right knee pain for 2 months due to slip and fall on knee. TECHNIQUE: Multiplanar, multisequence imaging of the right knee is performed without IV contrast. FINDINGS: MEDIAL MENISCUS: Oblique tear posterior horn medial meniscus. Anterior horn is intact. LATERAL MENISCUS: Anterior and posterior horns are intact without tear. CRUCIATE LIGAMENTS: The anterior and posterior cruciate ligaments are intact and unremarkable. COLLATERAL LIGAMENTS: The medial collateral ligament and lateral collateral ligament complex are inta ct and unremarkable. EXTENSOR MECHANISM: Visualized quadriceps and patellar tendons are intact. EFFUSION: Moderate joint effusion noted. POPLITEAL CYST: No popliteal/fischer cyst. TRICOMPARTMENT SPACES: Degenerative joint space narrowing. CARTILAGE: Intact BONE MARROW SIGNAL: No focal abnormal marrow signal is appreciated. OTHER: No additional significant abnormality is appreciated. IMPRESSION: Oblique tear posterior horn medial meniscus.
== END | disposition home or self-care (01) ==
LOC: RADMRIMAIN 19:12
PROVIDERS: ATTEND Orthopaedic Surgery
DX: S83.241A Other tear of medial meniscus, current injury, right knee, initial encounter (principal); W01.0XXA Fall on same level from slipping, tripping and stumbling without subsequent striking against object, initial encounter

== ENCOUNTER → 2023-05-22 | Outpatient (CLI) | payer BC | END | disposition home or self-care (01) | LOC: LABPAT 09:20 | PROVIDERS: ATTEND Orthopaedic Surgery | DX: Z53.9 Procedure and treatment not carried out, unspecified reason (principal) ==

== ENCOUNTER → 2023-05-22 | Outpatient (CLI) | payer BC ==
[2023-05-22 23:16] LABS: Basophils # (A) 0.06 X 10*3/uL (0.00-0.10); Basophils % (A) 0.8 %; Eosinophils # (A) 0.22 X 10*3/uL (0.04-0.35); HCT 42.2 % (37.2-46.3); Lymphocytes % (A) 25.8 %; MCH 29.8 pg (27.0-32.0); MCHC 33.2 d/dL (32.0-37.0); MCV 89.8 FL (80.0-97.0); Mean Platelet Volume 9.6 FL (9.5-12.2); Monocytes % (A) 6.8 %; NRBC Per 100 WBC 0 X 10*3/uL (0.00-0.01); Neutrophils # (A) 4.67 X 10*3/uL (1.80-7.70); Neutrophils % (A) 63.3 %; Platelet Count 357 X 10*3/uL (140-440); RDW 13.8 % (11.5-14.5); WBC 7.37 X 10*3/uL (4.50-10.00)
[2023-05-23 07:55] LABS: ALT 33 U/L (8-44); AST 27 U/L (13-35); Albumin 4.7 d/dL (3.8-4.9); Albumin/Globulin Ratio 2.04 Ratio (1.60-3.17); Alkaline Phosphatase 102 U/L (41-126); BUN/Creat Ratio 17.29 Ratio (12.00-20.00); Blood Urea Nitrogen 12.1 mg/dL (9.0-27.0); Calcium 9.9 mg/dL (8.7-10.3); Carbon Dioxide 25.6 mmol/L (21.6-31.8); Chloride 104 mmol/L (96-109); Chol/HDL Ratio 3.35 Ratio; Globulin 2.3 d/dL (1.6-3.3); Glucose 96 mg/dL (70-110); LDL Cholesterol,Calculated 105.9 mg/dL (0.0-131.0); Potassium 4.7 mmol/L (3.5-5.5); Sodium 140 mmol/L (135-145); Total Bilirubin 0.4 mg/dL (0.3-1.2)
== END | disposition home or self-care (01) ==
LOC: LABWHC1 09:23
PROVIDERS: ATTEND Family Medicine
DX: Z00.00 Encounter for general adult medical examination without abnormal findings (principal); E55.9 Vitamin D deficiency, unspecified
CPT/HCPCS: 36415; 80053; 80061; 82306; 83036; 84443; 85025

== ENCOUNTER 2023-06-09 08:17 | Day surgery (SDC) | payer BC ==
--- NOTE | 2023-06-08 14:58 | HP ---
HISTORY AND PHYSICAL DATE OF SURGERY: 06/09/2023. Delmy Holland is a 52-year-old patient, seen with progressive right knee pain. We discussed options for treatment. She elected to proceed with right knee arthroscopy. Consent regarding the procedure was obtained. Cardiac clearance was read by Dr. Ivey. PAST MEDICAL HISTORY: Cardiovascular disease, hypertension, hyperlipidemia. PAST SURGICAL HISTORY: Tonsillectomy, cardiac catheterization with stent. DAILY MEDICATIONS: Amlodipine, aspirin, atorvastatin, losartan, metoprolol, Plavix. ALLERGIES: None. SOCIAL HISTORY: She denies tobacco use. PHYSICAL EVALUATION OF THE RIGHT KNEE: Range of motion is 0 to 110 degrees. Mild effusion. Tenderness along the medial joint line. Positive medial Alma Rosa's. Ligaments stable. Hip rotation without pain. Distal neurovascular exam is intact. IMAGING STUDIES: Right knee radiographs revealed moderate osteoarthritis involving the medial compartment. MRI of right knee revealed medial meniscal tear. IMPRESSION: 1. Internal right knee medial meniscal tear. 2. Hypertension. 3. Hyperlipidemia. PLAN: Right knee arthroscopy with partial medial meniscectomy and debridement. MMODL / IJN: [id number] /
[~2023-06-09 08:17] MED LIST: DEXAMETHASONE SOD PHOSPHATE 4 MG/ML 1 ML VIAL IV ONE; LACTATED RINGERS 1,000 ML IV SCH; LIDOCAINE 1% (10MG/ML) FOR IV START INTRADERMA PRN; ONDANSETRON 4 MG/2 ML VIAL IVP ONE; droPERidol 5 MG/2 ML VIAL IVP ONE
[2023-06-09] MEDS ORDERED: MIDAZOLAM 2 MG/2 ML VIAL ONE (10:24)
[2023-06-09] MEDS ORDERED: BUPIVACAINE (PF) 0.5% 30 ML VIAL SQ ONE (10:24)
[2023-06-09] MEDS ORDERED: fentaNYL (PF) 50 MCG/ML 2 ML AMP ONE (10:24)
[2023-06-09] MEDS ORDERED: LIDOCAINE 2% INJ 20 MG/ML (2 ML VIAL) ONE (10:24)
[2023-06-09] MEDS ORDERED: KETOROLAC 15 MG/ML 1 ML VIAL ONE (10:24)
[2023-06-09] MEDS ORDERED: PROPOFOL 10 MG/ML 20 ML VIAL IV ONE (10:24)
--- NOTE | 2023-06-09 11:12 | P.OP ---
Date of Procedure: 06/09/23 Preoperative Diagnosis: Internal derangement right knee Postoperative Diagnosis: 1. Tear medial and lateral meniscus right knee 2. Grade 4 chondromalacia medial femoral condyle right knee 3. Reactive synovitis medial, lateral and suprapatellar compartments right knee Procedure(s) Performed: 1. Arthroscopic partial medial and lateral meniscectomy right knee 2. Arthroscopic microfracture medial femoral condyle right knee 3. Arthroscopic partial synovectomy medial, lateral and suprapatellar compartments right knee Anesthesia: BLAKEA, local Surgeon: Omid Roldan Estimated Blood Loss (ml): 5 Pathology: none sent Condition: stable Disposition: PACU Indications for Procedure: 52-year-old patient seen with progressive right knee pain. After treatment options were discussed, she elected to proceed with arthroscopy. Operative Findings: See description of procedure Description of Procedure: Patient was taken to the operative suite. Patient underwent a general anesthetic by the department of anesthesia. Patient was given preoperative antibiotics. The right lower extremity was placed in a well-padded arthroscopic leg townsend. The right leg was prepped and draped in the normal sterile orthopedic fashion. A lateral parapatellar and suprapatellar incision was made. Trochars were inserted. Arthroscopy was initiated. Suprapatellar pouch revealed diffuse thick reactive synovitis. The patellofemoral joint appeared to articulate congruently. There was grade 1 chondromalacia of the patella with no tears. The scope was guided into the medial gutter. No loose bodies or plica were identified. The scope was then guided into the medial compartment. A medial parapatellar incision was made. Trocar inserted followed by probe. There was a complex tear posterior horn medial meniscus. There were grade 2/3 chondral malacia changes throughout the medial compartment with one area anteriorly that appeared to be grade 4 chondromalacia. There was thick reactive synovitis anteriorly. I performed a partial medial meniscectomy getting down to stable meniscal tissue. I performed a partial synovectomy decompressing the thick reactive synovitis. I introduced a microfracture awl and I performed a microfracture to the area of exposed bone along the medial femoral condyle penetrating the bone with resultant bleeding at the microfracture site. The residual meniscus was stable. The residual osteochondral surface was stable. There was good decompression of the synovitis. Scope and probe were then guided into the intercondylar notch. Cruciates were identified, probed and found to be stable. The scope and probe were then guided into lateral compartment. There was a radial tear involving the anterior horn and midbody areas of the lateral meniscus. There were grade 1 chondromalacia changes lateral compartment. There was some reactive synovitis anteriorly. I performed a partial lateral meniscectomy getting down to stable meniscal tissue. I performed a partial synovectomy decompressing the reactive synovitis. The residual meniscus was stable. There was good decompression of the synovitis. The scope was in guided back into the suprapatellar compartment. I introduced a motorized shaver into the super compartment. I debrided some piecemeal fragments of meniscus that I encountered. I performed a partial synovectomy. Shaver was removed. There was good decompression of the synovitis. I took one more look around the entire knee, no residual debris. Instruments were now removed from the joint. The joint was infiltrated with .25% Marcaine. Steri-Strips were applied to the po rtal sites. Sterile dressings were applied. The patient was placed into a RACH hose. No tourniquet was utilized. The patient was awakened, transferred to a bed and taken to recovery stable satisfactory condition.
[2023-06-09 11:14] VITALS: TEMP 97
[2023-06-09] MEDS: HYDROmorphone 0.5 MG/0.5 ML SYRINGE IVP PRN ×2 (11:28→11:36)
[2023-06-09] MEDS ORDERED: LACTATED RINGERS 1,000 ML IV ONE (11:57)
[2023-06-09 12:20] VITALS: RESP 14
[2023-06-09] MEDS ORDERED: HYDROcodone/APAP 5-325MG 1 EACH TAB ONE (12:21)
[2023-06-09 12:27] VITALS: BP 179/87; PULSE 89
== END 2023-06-09 13:12 | disposition home or self-care (01) ==
LOC: OR 08:17
PROVIDERS: ATTEND Orthopaedic Surgery
DX: S83.241A Other tear of medial meniscus, current injury, right knee, initial encounter (principal); S83.281A Other tear of lateral meniscus, current injury, right knee, initial encounter; M94.261 Chondromalacia, right knee; M65.861 Other synovitis and tenosynovitis, right lower leg; I10 Essential (primary) hypertension; E78.5 Hyperlipidemia, unspecified; K21.9 Gastro-esophageal reflux disease without esophagitis; I25.10 Atherosclerotic heart disease of native coronary artery without angina pectoris; Z90.89 Acquired absence of other organs; Z95.1 Presence of aortocoronary bypass graft; Z79.82 Long term (current) use of aspirin; Z79.899 Other long term (current) drug therapy
CPT/HCPCS: 29880; 29879; J2250; J1100; J2405; J0690; J3010; J1885; J2704; J1170; J2001; J0665

== ENCOUNTER → 2024-08-01 | Outpatient (CLI) | payer BC ==
--- NOTE | 2024-08-06 18:42 | MM ---
Reason for Exam: Screening (asymptomatic). Last mammogram was performed 2 year(s) and 10 month(s) ago. Patient History: Menarche at age 14. First Full-Term at age 33. Late child-bearing (after 30). Postmenopausal. Patient used Hormonal Contraceptives for 10 years. Risk Values: Alicia 5 year model risk: 1.5%. NCI Lifetime model risk: 10.2%. Prior Study Comparison: 10/24/2021 Bilateral Screening Mammogram, [facility]. Tissue Density: The breasts are heterogeneously dense, which may obscure small masses. Findings: Analyzed By CAD. The pattern is symmetrical. Pattern is stable. Scar marker is on the left breast No suspicious groups of microcalcifications, spiculated or lobular masses, architectural distortion or other secondary signs of malignancy are mammographically apparent. Overall Assessment: Benign, BI-RAD 2 Management: Screening Mammogram of both breasts in 1 year. A negative mammogram report should not preclude additional follow up of suspicious palpable abnormalities. Patient should continue monthly self breast exam. A clinical breast exam by your physician is recommended on an annual basis and results should be correlated with mammographic findings. Note on Alicia scores and lifetime risk: 1. A Alicia score greater than 3% is considered moderate risk. If this is the case, consider specialist referral to assess eligibility for a risk reducing agent. 2. If overall lifetime risk for the development of breast cancer is 20% or higher, the patient may qualify for future screening with alternating mammogram and breast MRI. [facility], , 08/06/2024 6:40 PM. Electronically signed and approved by: Walt Spear D.O. Radiologis
== END | disposition home or self-care (01) ==
LOC: RADMAMWWP 07:46
PROVIDERS: ATTEND Family Medicine
DX: Z12.31 Encounter for screening mammogram for malignant neoplasm of breast (principal); R92.333 Mammographic heterogeneous density, bilateral breasts; Z78.0 Asymptomatic menopausal state
CPT/HCPCS: 77063; 77067